=== PATIENT | male | born 1980 ===

== ENCOUNTER 2017-04-07 17:40 | Emergency (ER) | payer SELFPAY ==
[2017-04-07 18:24] VITALS: BP 138/91; PULSE 64; TEMP 98.4; O2SAT 97
--- NOTE | 2017-04-07 19:03 | C.PDOC ---
History Of Present Illness 37 year old male presents to the ER complaining of lower back pain since Wednesday. States it worsens with movement. Notes he does heavy lifting at work and on Wednesday he lifted something prior to onset of pain. No weakness, fever, chills, vomiting, abdominal pain, urinary problems, bowel or bladder incontinence. Not taking any pain medications at home. PMD: Non-[facility] provider Time Seen by Provider: 04/07/17 18:35 Chief Complaint (Nursing): Back Pain History Per: Patient History/Exam Limitations: no limitations Onset/Duration Of Symptoms: Days (x6) Current Symptoms Are (Timing): Still Present Past Medical History Reviewed: Historical Data, Nursing Documentation, Vital Signs Vital Signs: Last Vital Signs Temp 98.4 F 04/07/17 18:23 Pulse 64 04/07/17 18:23 Resp 20 04/07/17 20:20 BP 138/91 H 04/07/17 18:23 Pulse Ox 97 04/07/17 20:44 - Medical History PMH: No Chronic Diseases Other Surgeries: Right lung surgery Family History: States: No Known Family Hx - Social History Hx Alcohol Use: Yes Hx Substance Use: No - Immunization History Hx Tetanus Toxoid Vaccination: No Hx Influenza Vaccination: Yes Hx Pneumococcal Vaccination: No Review Of Systems Except As Marked, All Systems Reviewed And Found Negative. Constitutional: Negative for: Fever, Chills Gastrointestinal: Negative for: Vomiting, Abdominal Pain Genitourinary: Negative for: Dysuria, Incontinence, Hematuria Musculoskeletal: Positive for: Back Pain Neurological: Negative for: Weakness, Numbness Physical Exam - Physical Exam Appears: Non-toxic, No Acute Distress Skin: Warm, Dry Head: Atraumatic, Normacephalic Eye(s): bilateral: Normal Inspection, EOMI Nose: Normal Oral Mucosa: Moist Neck: Normal ROM, Supple Chest: Symmetrical Respiratory: No Accessory Muscle Use, Other (speaking full sentences) Gastrointestinal/Abdominal: Soft, No Tenderness Back: No CVA Tenderness, No Vertebral Tenderness, Paraspinal Tenderness ( Paralumbar tenderness bilaterally) Extremity: Normal ROM Extremity: Bilateral: Atraumatic, Normal Color And Temperature, Normal ROM Neurological/Psych: Oriented x3, Normal Speech, Normal Motor, Normal Sensation, No Other (focal deficits) Gait: Steady ED Course And Treatment O2 Sat by Pulse Oximetry: 97 (RA) Pulse Ox Interpretation: Normal - Other Rad x-ray LS spine X-Ray: Interpreted by Me, Viewed By Me Interpretation: No acute disease Progress Note: Flexeril and Toradol given. X-ray of LS spine ordered. On reassessment, patient is resting comfortably, with improvement of back pain. Patient remains afebrile, with no bony tenderness, extremity numbness or weakness, or abdominal pain. Patient is ambulatory in the emergency department with no signs of discomfort. Patient was advised to follow up with physician/ clinic in 1-2 days. Reassessment Condition: Improved Disposition Counseled Patient/Family Regarding: Studies Performed, Diagnosis, Need For Followup, Rx Given - Disposition Disposition: HOME/ ROUTINE Disposition Time: 19:45 Condition: STABLE Additional Instructions: Vaya a mccarty mdico o la clnica en 2-5 west sin falta, para mas evaluacin. Sligo los medicamentos dayana indicado. Volver a la sincere de emergencia en cualquier momento si los sntomas persisten o empeoran. 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 - Scribe Statement The provider has reviewed the documentation as recorded by the Scribe (Haylee Meza) All medical record entries made by the Scribe were at my direction and personally dictated by me. I have reviewed the chart and agree that the record accurately reflects my personal performance of the history, physical exam, medical decision making, and the department course for this patient. I have also personally directed, reviewed, and agree with the discharge instructions and disposition.
[2017-04-07 20:21] VITALS: RESP 20
--- NOTE | 2017-04-08 08:34 | RAD ---
PROCEDURE: Radiographs of the Lumbar Spine. HISTORY: pain COMPARISON: No prior. FINDINGS: BONES: Lordotic straightening. No listhesis. No fracture. Mild endplate ridging at L4-5. Left-sided lumbosacral transitional elements suggested DISC SPACES: Minimal L4-5 mild L5-S1 disc space narrowing OTHER FINDINGS: None. IMPRESSION: Transitional mild senescent changes. No fracture
== END 2017-04-07 20:20 | disposition home or self-care (01) ==
LOC: C.ER 17:40
DX: M54.5 Low back pain (principal)
CPT/HCPCS: 72100; 96372; 99284; J1885